=== PATIENT | male | born 1990 | race Asian ===

== ENCOUNTER 2022-07-16 22:09 | Emergency (ER) | payer OTHER ==
[~2022-07-16] VITALS: Ht 172.7 cm; Wt 65.8 kg
== END 2022-07-16 23:16 | disposition home or self-care (01) ==
LOC: ER 22:09
DX: K13.0 Diseases of lips (principal)

== ENCOUNTER 2022-07-20 00:59 | Emergency (ER) | payer OTHER ==
[~2022-07-20] VITALS: Ht 172.7 cm; Wt 67.1 kg
[2022-07-20] MEDS ORDERED: AMOX1TAB5 PO (01:15)
[2022-07-20] MEDS ORDERED: IBU400 MG PO (01:16)
== END 2022-07-20 05:28 | disposition home or self-care (01) ==
LOC: ER 00:59
DX: K13.0 Diseases of lips (principal)

== ENCOUNTER → 2022-07-31 | Emergency (ER) | payer OTHER ==
[~2022-07-31] VITALS: Ht 172.7 cm; Wt 65.8 kg
[~2022-07-31] MED LIST: AMOX1TAB5 PO; IBU400 MG PO
== END | disposition left against medical advice (07) ==
LOC: ER 23:36
DX: Z53.21 Procedure and treatment not carried out due to patient leaving prior to being seen by health care provider (principal)

== ENCOUNTER 2022-08-01 23:15 | Emergency (ER) | payer OTHER ==
[~2022-08-01] VITALS: Ht 172.7 cm; Wt 65.8 kg
== END 2022-08-02 01:50 | disposition home or self-care (01) ==
LOC: ER 23:15
DX: L02.02 Furuncle of face (principal)

== ENCOUNTER 2022-08-27 18:34 | Emergency (ER) | payer OTHER ==
[~2022-08-27] VITALS: Ht 172.7 cm; Wt 65.8 kg
== END 2022-08-27 19:03 | disposition home or self-care (01) ==
LOC: ER 18:34
DX: L70.9 Acne, unspecified (principal)

== ENCOUNTER 2022-10-14 14:53 | Outpatient (CLI) | payer OTHER | END 2022-10-14 15:13 | disposition home or self-care (01) | LOC: SONOGRAMA 14:53 | PROVIDERS: ATTEND Surgery | DX: N50.9 Disorder of male genital organs, unspecified (principal) ==